=== PATIENT | male | born 1965 | race Caucasian/White ===

== ENCOUNTER → 2017-03-19 | Outpatient (CLI) | payer OTHER ==
[~2017-03-19] MED LIST: METF500T4 PO; OMEP20CA12 PO; TRAM-42 PO
--- NOTE | 2017-03-19 10:41 | Diagnostic Imaging Report ---
INDICATION: Left-sided abdominal pain. History of constipation. COMPARISON: None FINDINGS: Two supine radiographic views of the abdomen were obtained and demonstrate nondistended loops of small bowel. There is no large collection of free peritoneal air. Mild air and stool are seen scattered throughout the colon. No unexpected extraosseous calcifications or radiopaque foreign bodies are seen. Bony structures show no gross acute abnormalities. IMPRESSION: 1. Nonobstructed small bowel gas pattern. Dictated by: Dictated on workstation # [id number]
== END ==
LOC: RAD 10:19
PROVIDERS: ATTEND Nurse Practitioner Family
DX: K59.00 Constipation, unspecified (principal)
CPT/HCPCS: 74000

== ENCOUNTER 2017-03-25 12:15 | Emergency (ER) | payer OTHER ==
[~2017-03-25] VITALS: Ht 182.9 cm; Wt 108.9 kg
--- NOTE | 2017-03-25 12:30 | ED GI ---
General Chief Complaint: Abdominal/GI Problems Stated Complaint: STOMACH PAIN Source of Information: Patient Exam Limitations: No Limitations History of Present Illness Time Seen By Provider: 12:32 Initial Comments To ER per private vehicle with reports of left-sided abdominal pain. He's had alternating constipation and diarrhea with this pain intermittently for the past few months. Recently, the pain has become more persistent. No fevers or chills. He does have some intermittent nausea. He resides in [facility] traveling for work as he is the [employer]IVE [employer] of [employer] which has an office here in [place]. This began a few months ago when he was in [employer]. He cannot associate any foods with this pain. No bloody stools. Timing/Duration: 1-2 Days Severity/Quality: Moderate Location: LUQ, LLQ Radiation: No Radiation Activities at Onset: None Associated Symptoms: No Fever/Chills, Nausea/Vomiting Allergies and Home Medications Allergies Coded Allergies: No Known Drug Allergies (Unverified , 03/25/17) Home Medications Metformin HCl 500 Mg Tablet, 500 MG PO BID, (Reported) Omeprazole 20 Mg Capsule.dr, 20 MG PO DAILY, #30 (Reported) Tramadol HCl 50 Mg Tablet, 50 MG PO Q6H, #14 Prescribed by: TERESSA REEDER on 03/25/17 1401 Review of Systems Constitutional: see HPI EENTM: No Symptoms Reported Respiratory: No Symptoms Reported Cardiovascular: No Symptoms Reported Gastrointestinal: See HPI, Abdominal Pain, Denies Blood Streaked Stools, Denies Constipated, Diarrhea, Nausea, Denies Vomiting Genitourinary: No Symptoms Reported Musculoskeletal: no symptoms reported Skin: no symptoms reported Psychiatric/Neurological: No Symptoms Reported Past Qkiujnc-Xziiwl-Rysjit Hx Patient Social History Recent Foreign Travel: No Contact w/Someone Who Travel: No Physical Exam Vital Signs VS - Last 72 Hours, by Label 03/25/17 12:22 Temp 97.3 Pulse 95 Resp 18 B/P (MAP) 161/98 Pulse Ox 96 O2 Delivery Room Air Capillary Refill : General Appearance: WD/WN, no apparent distress HEENT: PERRL/EOMI, normal ENT inspection Respiratory: normal breath sounds, no respiratory distress, no accessory muscle use Cardiovascular: regular rate, rhythm, no murmur Gastrointestinal: normal bowel sounds, soft, tenderness (left-sided abdominal) Extremities: normal range of motion, non-tender Neurologic/Psychiatric: alert, normal mood/affect, oriented x 3 Skin: normal color, warm/dry Progress/Results/Core Measures Results/Orders Lab Results Laboratory Tests Test 03/25/17 12:25 03/25/17 12:35 Range/Units White Blood Count 9.6 4.3-11.0 10^3/uL Red Blood Count 5.89 H 4.35-5.85 10^6/uL Hemoglobin 17.0 13.3-17.7 G/DL Hematocrit 48 40-54 % Mean Corpuscular Volume 81 80-99 FL Mean Corpuscular Hemoglobin 29 25-34 PG Mean Corpuscular Hemoglobin Concent 36 32-36 G/DL Red Cell Distribution Width 12.8 10.0-14.5 % Platelet Count 269 130-400 10^3/uL Mean Platelet Volume 10.1 7.4-10.4 FL Neutrophils (%) (Auto) 69 42-75 % Lymphocytes (%) (Auto) 23 12-44 % Monocytes (%) (Auto) 5 0-12 % Eosinophils (%) (Auto) 2 0-10 % Basophils (%) (Auto) 1 0-10 % Neutrophils # (Auto) 6.6 1.8-7.8 X 10^3 Lymphocytes # (Auto) 2.2 1.0-4.0 X 10^3 Monocytes # (Auto) 0.5 0.0-1.0 X 10^3 Eosinophils # (Auto) 0.2 0.0-0.3 10^3/uL Basophils # (Auto) 0.1 0.0-0.1 10^3/uL Sodium Level 136 135-145 MMOL/L Potassium Level 4.3 3.6-5.0 MMOL/L Chloride Level 102 98-107 MMOL/L Carbon Dioxide Level 23 21-32 MMOL/L Anion Gap 11 5-14 MMOL/L Blood Urea Nitrogen 11 7-18 MG/DL Creatinine 0.76 0.60-1.30 MG/DL Estimat Glomerular Filtration Rate > 60 BUN/Creatinine Ratio 14 Glucose Level 265 H 70-105 MG/DL Calcium Level 9.5 8.5-10.1 MG/DL Total Bilirubin 0.9 0.1-1.0 MG/DL Aspartate Amino Transf (AST/SGOT) 51 H 5-34 U/L Alanine Aminotransferase (ALT/SGPT) 58 H 0-55 U/L Alkaline Phosphatase 56 40-136 U/L Total Protein 7.7 6.4-8.2 G/DL Albumin 4.3 3.2-4.5 G/DL Lipase 72 8-78 U/L Urine Color YELLOW Urine Clarity CLEAR Urine pH 5 5-9 Urine Specific Garnett 1.025 H 1.016-1.022 Urine Protein 1+ H NEGATIVE Urine Glucose (UA) 3+ H NEGATIVE Urine Ketones 3+ H NEGATIVE Urine Nitrite NEGATIVE NEGATIVE Urine Bilirubin NEGATIVE NEGATIVE Urine Urobilinogen NORMAL NORMAL MG/DL Urine Leukocyte Esterase NEGATIVE NEGATIVE Urine RBC (Auto) NEGATIVE NEGATIVE Urine RBC NONE /HPF Urine WBC NONE /HPF Urine Squamous Epithelial Cells RARE /HPF Urine Crystals NONE /LPF Urine Bacteria NEGATIVE /HPF Urine Casts NONE /LPF Urine Mucus MODERATE H /LPF Urine Culture Indicated NO My Orders Orders - TERESSA REEDER APRN Cbc With Automated Diff (03/25/17 12:28) Comprehensive Metabolic Panel (03/25/17 12:28) Ua Culture If Indicated (03/25/17 12:28) Saline Lock/Iv-Start (03/25/17 12:28) Ct Abdomen/Pelvis W (03/25/17 12:28) Lipase (03/25/17 12:28) Iohexol Injection (Omnipaque 350 Mg/Ml 1 (03/25/17 13:15) Sodium Chloride Flush (Catheter Flush Sy (03/25/17 13:15) Ns (Ivpb) (Sodium Chloride 0.9% Ivpb Bag (03/25/17 13:15) Medications Given in ED Current Medications Medications Dose Ordered Sig/Bhargavi Route Start Time Stop Time Status Last Admin Dose Admin Iohexol 100 ml ONCE ONCE IV 03/25/17 13:15 03/25/17 13:16 DC 03/25/17 13:20 100 ML Sodium Chloride 10 ml NEEDED PRN IV 03/25/17 13:15 03/25/17 13:20 10 ML Sodium Chloride 100 ml ONCE ONCE IV 03/25/17 13:15 03/25/17 13:16 DC 03/25/17 13:20 80 ML Vital Signs/I&O Vital Sign - Last 12Hours 03/25/17 12:22 Temp 97.3 Pulse 95 Resp 18 B/P (MAP) 161/98 Pulse Ox 96 O2 Delivery Room Air Diagnostic Imaging Diagonstic Imaging: CT Comments NAME: KYLEE ANGEL [facility] REC#: [id number] PT STATUS: REG ER : 1965 PHYSICIAN: TERESSA REEDER APRN ADMIT DATE: 03/25/17/ER Draft Date of Exam:03/25/17 CT ABDOMEN/PELVIS W PROCEDURE: CT abdomen and pelvis with contrast. TECHNIQUE: Multiple contiguous axial images were obtained through the abdomen and pelvis after administration of intravenous contrast. INDICATION: Abdominal pain, cramps, nausea. COMPARISON: No priors. FINDINGS: There is some thickening of the wall circumferentially of the distal thoracic esophagus. While this could be a process such as reflux esophagitis, consider nonemergent fluoroscopic interrogation with esophagram versus endoscopic correlation to exclude infiltrative process. Single wall thickness above the EG junction of the esophagus was maximal about 1 cm. No paraesophageal abnormality. The lung bases were clear. The liver density suggests mild steatosis appearing otherwise normal. The gallbladder and bile ducts are unremarkable. The adrenals, spleen and pancreas appeared nonacute. The aortoiliac and mesenteric vessels patent and nonaneurysmal. The air-containing appendix visualized and normal. There is no diverticulitis. There were no findings of pancreatitis. There is no ascites, abscess, hematoma or other fluid collection. No pneumatosis or free air. There is no bowel, biliary or urinary tract obstruction. No adenopathy or aneurysm. IMPRESSION: Mild hepatic steatosis. Nonacute abdominal pelvic study. Lower thorax revealed circumferential thickening of the distal esophagus indeterminate inflammatory versus infiltrative. Further workup with esophagram versus endoscopy recommended. Dictated on workstation # [id number] Dict: 03/25/17 1337 Trans: 03/25/17 1346 [id number] Interpreted by: CRUZ MARISCAL Electronically signed by: Departure Impression Impression: Primary Impression: Left sided abdominal pain Disposition: 01 HOME, SELF-CARE Condition: Stable Departure-Patient Inst. Decision time for Depature: 13:53 Referrals: LIZABETH ALFREDO MD (PCP/Family) Primary Care Physician Patient Instructions: No Instuctions Given Add. Discharge Instructions: 1. Follow-up with Dr. ALFREDO for referral to one of the surgeons here in town for an EGD/colonoscopy. The colonoscopy will evaluate your left-sided abdominal symptoms and the EGD will evaluate the thickened appearance of the lower esophagus seen on the CT scan. 2. Return to ER for any concerns 3. Once they were able to provide a stool sample, return this here to the emergency room and they will direct you to the lab 4. Drink plenty of sugar free fluids. All discharge instructions reviewed with patient and/or family. Voiced understanding. Scripts Tramadol HCl (Ultram) 50 Mg Tablet 50 MG PO Q6H for Pain, #14 TAB Prov: TERESSA REEDER APRN 03/25/17 Copy Copies To 1: LIZABETH ALFREDO MD, PETER J APRN March 25, 2017 12:30
[2017-03-25 12:33] LABS: BASOPHILS # (AUTO) 0.1 10^3/uL (0.0-0.1); BASOPHILS % (AUTO) 1 % (0-10); EOSINOPHILS # (AUTO) 0.2 10^3/uL (0.0-0.3); EOSINOPHILS % (AUTO) 2 % (0-10); LYMPHOCYTES # (AUTO) 2.2 X 10^3 (1.0-4.0); LYMPHOCYTES % (AUTO) 23 % (12-44); MEAN CORPUSCULAR HEMOGLOBIN 29 PG (25-34); MEAN CORPUSCULAR HGB CONC 36 G/DL (32-36); MEAN CORPUSCULAR VOLUME 81 FL (80-99); MEAN PLATELET VOLUME 10.1 FL (7.4-10.4); MONOCYTES # (AUTO) 0.5 X 10^3 (0.0-1.0); MONOCYTES % (AUTO) 5 % (0-12); NEUTROPHILS # (AUTO) 6.6 X 10^3 (1.8-7.8); NEUTROPHILS % (AUTO) 69 % (42-75); PLATELET COUNT 269 10^3/uL (130-400); RED BLOOD COUNT 5.89 10^6/uL (4.35-5.85); RED CELL DISTRIBUTION WIDTH 12.8 % (10.0-14.5); WHITE BLOOD COUNT 9.6 10^3/uL (4.3-11.0)
[2017-03-25] MEDS ORDERED: METF500T4 PO (12:42)
[2017-03-25] MEDS ORDERED: OMEP20CA12 PO (12:42)
[2017-03-25 12:51] LABS: ALANINE AMINOTRANSFERASE 58 U/L (0-55); ALBUMIN 4.3 G/DL (3.2-4.5); ANION GAP 11 MMOL/L (5-14); ASPARTATE AMINO TRANSFERASE 51 U/L (5-34); BILIRUBIN,TOTAL 0.9 MG/DL (0.1-1.0); BLOOD UREA NITROGEN 11 MG/DL (7-18); BUN/CREATININE RATIO 14; CALCIUM 9.5 MG/DL (8.5-10.1); CARBON DIOXIDE 23 MMOL/L (21-32); CHLORIDE 102 MMOL/L (98-107); CREATININE SERUM 0.76 MG/DL (0.60-1.30); GFR ESTIMATED > 60; GLUCOSE 265 MG/DL (70-105); LIPASE 72 U/L (8-78); POTASSIUM 4.3 MMOL/L (3.6-5.0); SODIUM 136 MMOL/L (135-145); TOTAL PROTEIN 7.7 G/DL (6.4-8.2)
[2017-03-25 12:54] LABS: BILIRUBIN,URINE NEGATIVE (NEGATIVE); KETONES,URINE 3+ (NEGATIVE); LEUKOCYTE ESTERASE ,URINE NEGATIVE (NEGATIVE); NITRITE,URINE NEGATIVE (NEGATIVE); PH,URINE 5 (5-9); PROTEIN,URINE 1+ (NEGATIVE); UROBILINOGEN,URINE NORMAL (NORMAL)
[2017-03-25 13:06] LABS: SQUAMOUS EPITHELIAL CELL,UR RARE /HPF
[2017-03-25] MEDS ORDERED: CATHETER FLUSH 10 ML SYR IV PRN (13:15)
[2017-03-25] MEDS ORDERED: IOHEXOL 350 MG/ML 100 ML (OMNIPAQUE 350) VIAL IV ONE (13:15)
[2017-03-25] MEDS ORDERED: NS 100 ML (IVPB) BAG IV ONE (13:15)
--- NOTE | 2017-03-25 13:46 | Diagnostic Imaging Report ---
PROCEDURE: CT abdomen and pelvis with contrast. TECHNIQUE: Multiple contiguous axial images were obtained through the abdomen and pelvis after administration of intravenous contrast. INDICATION: Abdominal pain, cramps, nausea. COMPARISON: No priors. FINDINGS: There is some thickening of the wall circumferentially of the distal thoracic esophagus. While this could be a process such as reflux esophagitis, consider nonemergent fluoroscopic interrogation with esophagram versus endoscopic correlation to exclude infiltrative process. Single wall thickness above the EG junction of the esophagus was maximal about 1 cm. No paraesophageal abnormality. The lung bases were clear. The liver density suggests mild steatosis appearing otherwise normal. The gallbladder and bile ducts are unremarkable. The adrenals, spleen and pancreas appeared nonacute. The aortoiliac and mesenteric vessels patent and nonaneurysmal. The air-containing appendix visualized and normal. There is no diverticulitis. There were no findings of pancreatitis. There is no ascites, abscess, hematoma or other fluid collection. No pneumatosis or free air. There is no bowel, biliary or urinary tract obstruction. No adenopathy or aneurysm. IMPRESSION: Mild hepatic steatosis. Nonacute abdominal pelvic study. Lower thorax revealed circumferential thickening of the distal esophagus indeterminate inflammatory versus infiltrative. Further workup with esophagram versus endoscopy recommended. Dictated by: Dictated on workstation # [id number]
[2017-03-25] MEDS ORDERED: TRAM-42 PO (14:01)
[2017-03-25 14:18] VITALS: BP 171/95
== END 2017-03-25 14:18 | disposition home or self-care (01) ==
LOC: EDUNIT# 12:15 → ER 12:18
DX: R10.32 Left lower quadrant pain (principal); R19.7 Diarrhea, unspecified; E11.9 Type 2 diabetes mellitus without complications; Z79.84 Long term (current) use of oral hypoglycemic drugs
CPT/HCPCS: 36415; 74177; 80053; 81000; 83690; 85025; 87045; 87046; 87177

== ENCOUNTER 2017-03-25 20:30 | Outpatient (RCR) | payer OTHER | END 2017-06-23 | disposition home or self-care (01) | LOC: LAB 20:30 | PROVIDERS: ATTEND Nurse Practitioner Family | DX: R10.32 Left lower quadrant pain (principal); R19.7 Diarrhea, unspecified | CPT/HCPCS: 87045; 87046; 87328; 87329 ==

== ENCOUNTER 2017-04-01 05:51 | Outpatient (CLI) | payer OTHER ==
[~2017-04-01] VITALS: Ht 182.9 cm; Wt 108.9 kg
== END 2017-04-01 15:57 ==
LOC: PREOP 05:51
PROVIDERS: ATTEND Surgery
DX: Z01.818 Encounter for other preprocedural examination (principal); K21.9 Gastro-esophageal reflux disease without esophagitis; Z12.11 Encounter for screening for malignant neoplasm of colon; R19.7 Diarrhea, unspecified; R14.0 Abdominal distension (gaseous)

== ENCOUNTER 2017-04-03 09:28 | Day surgery (SDC) | payer OTHER ==
[~2017-04-03] VITALS: Ht 182.9 cm; Wt 108.9 kg
[2017-04-03] MEDS ORDERED: NS IV 500 ML 500 ML IV PRN (09:45)
[2017-04-03] MEDS ORDERED: FLUMAZENIL (ROMAZICON) 0.1 MG/ML 5 ML VIAL INJ PRN (09:45)
[2017-04-03] MEDS ORDERED: NALOXONE 0.4 MG/ML 1 ML (NARCAN) VIAL IVP PRN (09:45)
[2017-04-03] MEDS ORDERED: HURRICAINE EXT TUBE (BENZOCAINE) XX PRN (09:45)
[2017-04-03 09:55] VITALS: BP 133/84
[2017-04-03] MEDS ORDERED: fentaNYL INJECTION 100 MCG/2 ML AMP ONE ×2 (11:19)
[2017-04-03] MEDS ORDERED: MIDAZOLAM 2 MG/2 ML (VERSED) VIAL ONE ×4 (11:19)
[2017-04-03] MEDS ORDERED: HURRICAINE EXT TUBE (BENZOCAINE) ONE (11:19)
[2017-04-03] MEDS ORDERED: MIDAZOLAM 10 MG/2 ML (VERSED) VIAL IVP PRN (11:20)
[2017-04-03] MEDS: fentaNYL INJECTION 100 MCG/2 ML AMP IVP PRN ×2 (11:24→11:29)
[2017-04-03] MEDS: MIDAZOLAM 2 MG/2 ML (VERSED) VIAL IM PRN ×3 (11:26→11:32)
--- NOTE | 2017-04-03 11:53 | Conscious Sedation/ASA ---
Conscious Sedation Pre-Proced Time Reviewed: 09:50 ASA Class: 2 Airway Mallampati Classification: (ugash[place] appropriate class) I. II. III, IV Lungs Heart ASA score ASA 1: a normal healthy patient ASA 2: a patient with a mild systemic disease (mid diabetes, controlled hypertension, obesity ASA 3: a patient with a severe systemic disease that limits activity (angina , COPD, prior Myocardial infarction) ASA 4: a patient with an incapacitating disease that is a constant threat to life (CHF, renal failure) ASA 5: a moribund patient not expected to survive 24 hrs. (ruptured aneurysm) ASA 6: a declared brain patient whose organs are being harvested. For emergent operations, add the letter E after the classification Grade 2 Sedation Plan: Discussed options with patient/fam Note The patient is an appropriate candidate to undergo the planned procedure, sedation, and anesthesia. The patient immediately re-assessed prior to indication. WARNER BILLINGS MD Apr 03, 2017 11:53
--- NOTE | 2017-04-03 11:54 | Endoscopy Procedure Report ---
Endoscopy Report Date: Apr 03, 2017 Preoperative Diagnosis: dysphagia. Change in bowel habits Study Performed: Upper Endoscopy, Colonoscopy Procedure Instrument: Colonoscope Endo Procedure/Findings Findings 1.: Normal, Stricture Copy Copies To 1: LIZABETH ALFREDO MD, XAVIER M MD Apr 03, 2017 11:54
--- NOTE | 2017-04-03 11:56 | Discharge Inst-Simple/Standard ---
Discharge Inst-Standard Discharge Medications New, Converted or Re-Newed RX: Other Patient Instructions/Follow Up Plan of Care/Instructions/FU: my office will schedule an endoscopic ultrasound as an outpatient. Screening colonoscopy in 10 years Activity as Tolerated: Yes Discharge Diet: ADA Diet WARNER BILLINGS MD Apr 03, 2017 11:55
[2017-04-03 12:25] VITALS: BP 131/74
[2017-04-03 12:55] VITALS: BP 136/89
[2017-04-03 13:05] VITALS: BP 136/89
--- NOTE | 2017-04-03 14:55 | OPERATIVE REPORT ---
DATE OF SERVICE: 04/03/2017 PROCEDURES: 1. Upper gastrointestinal endoscopy with antral biopsy. 2. Balloon dilatation. SURGEON: Warner Billings MD INDICATION FOR PROCEDURE: This gentleman came in for an upper endoscopy to evaluate dysphagia, along with intermittent symptoms of reflux disease and for colonoscopy for screening purposes. In addition, he also reported intermittent change in his bowel habits and pain over the left lower quadrant of his abdomen. Informed consent was obtained after reviewing the procedures in detail. DESCRIPTION OF PROCEDURE: Upper GI endoscopy/antral biopsy/balloon dilatation: He was placed in left lateral decubitus position and his vital signs were monitored. Conscious sedation was achieved using Versed and fentanyl. The flexible gastroscope was introduced down the esophagus, passed the stomach, into the proximal duodenum. FINDINGS: ESOPHAGUS: 1. A submucosal lesion, possibly a lipoma at 28 cm, measuring about 3 mm in diameter. This would be evaluated further using an endoscopic ultrasound subsequently. 2. Grade II esophagitis with concentric stricture at the distal end. It was dilated to 19 mm with the balloon. STOMACH: Multiple antral erosions were found. Biopsy for Helicobacter status was obtained. DUODENUM: Normal. He tolerated the procedure well and was turned around in preparation for colonoscopy. IMPRESSION: Symptoms of dysphagia and reflux disease. Peptic stricture identified and dilated. Incidental gastric erosions. Submucosal lipoma/leiomyoma. Endoscopic ultrasound will be arranged subsequently. PROCEDURE: Colonoscopy. DESCRIPTION OF PROCEDURE: Digital rectal examination was unremarkable. The colonoscope was then introduced into the rectum and advanced all the way up to the cecum. It was then withdrawn slowly and the mucosa examined in a systematic fashion. There was no abnormality. He tolerated the procedures well and was taken back to the nursing area in stable condition. IMPRESSION: Change in bowel habits and left lower quadrant pain. Normal colonoscopy. Recommend screening examination in 10 years. Job ID: [id number] DocumentID: [id number] Dictated Date: 04/03/2017 11:51:54 Carrier Washer Date: 04/03/2017 13:23:58 Dictated By: WARNER BILLINGS MD [facility]
== END 2017-04-03 13:05 | disposition home or self-care (01) ==
LOC: ENDO 09:28
PROVIDERS: ATTEND Surgery
DX: K22.2 Esophageal obstruction (principal); K22.8 Other specified diseases of esophagus; K20.9 Esophagitis, unspecified; K25.9 Gastric ulcer, unspecified as acute or chronic, without hemorrhage or perforation; R19.4 Change in bowel habit; R10.32 Left lower quadrant pain; E11.9 Type 2 diabetes mellitus without complications; Z79.84 Long term (current) use of oral hypoglycemic drugs
CPT/HCPCS: 82962; 88305

== ENCOUNTER → 2017-04-08 | Outpatient (CLI) | payer OTHER ==
--- NOTE | 2017-04-08 09:39 | Diagnostic Imaging Report ---
PROCEDURE: US Gallbladder. TECHNIQUE: Multiple real-time grayscale images were obtained over the right upper quadrant in various projections. INDICATION: Right upper quadrant pain. FINDINGS: The liver has increased echogenicity, consistent with fatty infiltration. The gallbladder is clear with no stones or wall thickening. The common duct is not dilated. The pancreas is obscured by bowel gas. The right kidney appears normal. There is no ascites. IMPRESSION: Echogenic liver which could be due to steatosis. Dictated by: Dictated on workstation # [id number]
== END ==
LOC: RAD 07:59
PROVIDERS: ATTEND Surgery
DX: R10.11 Right upper quadrant pain (principal)
CPT/HCPCS: 76705